=== PATIENT | male | born 1970 | race Two or more races ===

== ENCOUNTER → 2024-02-18 | Day surgery (SDC) | payer MEDICAID ==
[2024-02-12 11:20] LABS: Basophils # (auto) 0 10 ^3/uL (0-0.2); Basophils % (auto) 0.5 % (0.0-2.0); Eosinophils # (auto) 0.1 10 ^3/uL (0-0.8); Eosinophils % (auto) 1.6 % (0.0-7.0); Hematocrit 47.6 % (41.0-53.0); Hemoglobin 16.6 g/dL (13.5-17.5); Lymphocytes # (auto) 3.4 10 ^3/uL (0.4-5.4); Lymphocytes % (auto) 42.6 % (10.0-50.0); Mean Corpuscular Hgb Conc. 34.9 g/dL (32.0-36.0); Mean Corpuscular Volume 97.5 fL (80.0-100.0); Monocytes # (auto) 0.5 10 ^3/uL (0-1.3); Monocytes % (auto) 6.6 % (0.0-12.0); Neutrophils # (auto) 3.9 10 ^3/uL (1.6-8.6); Neutrophils % (auto) 48.7 % (37.0-80.0); Platelet Count (auto) 193 10^3/uL (140-450); Red Blood Cells 4.89 10^6/uL (4.5-5.90); Red Cell Distribution Width 13.7 % (11.8-14.3)
[2024-02-12 11:40] LABS: INR 1.01 (0.9-1.15); Partial Thromboplastin Time 29.1 SEC (24.5-34.5); Prothrombin Time 10.7 sec (9.3-11.8)
[2024-02-12 11:53] LABS: Alanine Aminotransferase 20 U/L (7-40); Albumin 4.7 g/dL (3.2-4.8); Alkaline Phosphatase 90 U/L (46-116); Anion Gap 6 (5-15); Aspartate Aminotransferase 17 U/L (13-40); Blood Urea Nitrogen 7 mg/dL (9-23); Calcium 10.1 mg/dL (8.7-10.4); Carbon Dioxide 28 mmol/L (20-31); Chloride 106 mmol/L (98-107); Glucose 114 mg/dL (74-106); Potassium 4.5 mmol/L (3.5-5.1); Sodium 140 mmol/L (136-145)
[2024-02-12 11:55] LABS: Bilirubin, Total 0.7 mg/dL (0.2-1.0); Total Protein 7.3 g/dL (5.7-8.2)
[~2024-02-18] VITALS: Ht 170.2 cm; Wt 81.6 kg
[~2024-02-18] MED LIST: ASPI-543 PO; ATOR10TA52 PO; CHOL20007 PO; METF-370 PO; SODIUM CHLORIDE LOCK 10 ML ONE
[2024-02-18 11:11] VITALS: O2SAT 99
[2024-02-18] MEDS: diphenhdrAMINE HCL 50 MG/1 ML VL ONE (11:25)
[2024-02-18] MEDS: fentaNYL CITRATE 100 MCG/2 ML VL ONE (11:25)
[2024-02-18] MEDS: MIDAZOLAM HCL 5 MG/ML-1ML VIAL ONE (11:25)
[2024-02-18 11:48] VITALS: TEMP 97.4; O2SAT 100
[2024-02-18 12:35] VITALS: BP 116/58; PULSE 67; RESP 14; O2SAT 99
== END | disposition home or self-care (01) ==
LOC: EDUNIT# 10:13 → GI 10:13
PROVIDERS: ATTEND Internal Medicine Gastroenterology
DX: Z12.11 Encounter for screening for malignant neoplasm of colon (principal); D12.7 Benign neoplasm of rectosigmoid junction; D12.4 Benign neoplasm of descending colon; K64.8 Other hemorrhoids; I10 Essential (primary) hypertension; E11.9 Type 2 diabetes mellitus without complications; F17.210 Nicotine dependence, cigarettes, uncomplicated; Z86.0100 Personal history of colon polyps, unspecified
CPT/HCPCS: 36415; 45380; 80053; 82962; 85025; 85610; 85730; 88305; J1200; J2250; J3010; J7030; 99152

== ENCOUNTER → 2024-05-14 | Outpatient (CLI) | payer MEDICAID ==
[~2024-05-14] MED LIST changes: -SODIUM CHLORIDE LOCK 10 ML ONE
[2024-05-14 06:41] LABS: Urine Bacteria None Seen /hpf (None Seen)
[2024-05-14 06:50] LABS: Urine Blood Negative /uL (Negative); Urine Clarity Clear (Clear); Urine Color Yellow (Yellow); Urine Mucus FEW (None Seen); Urine Protein, UAD Negative (Negative); Urine Specific Gravity 1.019 (1.001-1.035); Urine Squamous Epithelial Cell None Seen /hpf (<5); Urine Urobilinogen 2 mg/dL (Negative); Urine WBC 2 /HPF (0-3)
[2024-05-14 06:55] LABS: Basophils # (auto) 0 10 ^3/uL (0-0.2); Basophils % (auto) 0.5 % (0.0-2.0); Eosinophils # (auto) 0.3 10 ^3/uL (0-0.8); Eosinophils % (auto) 3.6 % (0.0-7.0); Hematocrit 46.9 % (41.0-53.0); Hemoglobin 16.2 g/dL (13.5-17.5); Lymphocytes # (auto) 3.6 10 ^3/uL (0.4-5.4); Lymphocytes % (auto) 48.7 % (10.0-50.0); Mean Corpuscular Hemoglobin 33.4 pg (28.0-32.0); Mean Corpuscular Hgb Conc. 34.6 g/dL (32.0-36.0); Mean Corpuscular Volume 96.7 fL (80.0-100.0); Monocytes # (auto) 0.6 10 ^3/uL (0-1.3); Monocytes % (auto) 7.7 % (0.0-12.0); Neutrophils % (auto) 39.5 % (37.0-80.0); Platelet Count (auto) 210 10^3/uL (140-450); Red Blood Cells 4.85 10^6/uL (4.5-5.90); Red Cell Distribution Width 13.6 % (11.8-14.3); White Blood Cell 7.5 10^3/uL (4.4-10.8)
[2024-05-14 07:20] LABS: Alanine Aminotransferase 14 U/L (7-40); Albumin 4.7 g/dL (3.2-4.8); Anion Gap 6 (5-15); BUN/Creatinine Ratio 8.7 (10.0-20.0); Blood Urea Nitrogen 10 mg/dL (9-23); Calcium 9.8 mg/dL (8.7-10.4); Carbon Dioxide 30 mmol/L (20-31); Chloride 106 mmol/L (98-107); Cholesterol 135 mg/dL (< 200); LDL Cholesterol 88 mg/dL (< 100); Potassium 4.2 mmol/L (3.5-5.1); Prostate Specific Antigen 0.91 ng/mL (0.0-4.0); Sodium 142 mmol/L (136-145); Triglycerides 133 mg/dL (< 150)
[2024-05-14 07:21] LABS: Bilirubin, Total 0.5 mg/dL (0.2-1.0); Total Protein 6.9 g/dL (5.7-8.2)
[2024-05-14 07:29] LABS: Alkaline Phosphatase 120 U/L (46-116); Aspartate Aminotransferase 9 U/L (13-40); Glucose 147 mg/dL (74-106); HDL Cholesterol 37 mg/dL (40-59)
== END | disposition home or self-care (01) ==
LOC: LAB 06:19
PROVIDERS: ATTEND Internal Medicine
DX: E78.5 Hyperlipidemia, unspecified (principal); E11.22 Type 2 diabetes mellitus with diabetic chronic kidney disease
CPT/HCPCS: 36415; 80053; 80061; 81001; 82043; 82607; 83036; 84153; 84443; 85025

== ENCOUNTER 2024-09-03 16:13 | Inpatient (IN) | payer MEDICAID ==
[~2024-09-03] VITALS: Ht 33 cm; Wt 90.5 kg
[2024-09-03 16:28] VITALS: BP 142/86; PULSE 104; RESP 20; TEMP 98.6; O2SAT 96
[2024-09-03] MEDS ORDERED: ERGO1CAP12 PO (16:43)
[2024-09-03] MEDS ORDERED: LISI20TA56 PO (16:43)
[2024-09-03] MEDS ORDERED: CYAN100042 PO (16:43)
[2024-09-03] MEDS ORDERED: HYDROcodone-ACET 5/325MG TAB PO PRN (16:45)
[2024-09-03] MEDS ORDERED: ACETAMINOPHEN 325 MG TAB PO PRN (16:45)
[2024-09-03] MEDS ORDERED: DEXTROSE (50%) 50ML SYRG IV PRN (16:45)
[2024-09-03] MEDS ORDERED: MORPHINE SULFATE INJ 2 MG/ml SYRG IV PRN (16:45)
[2024-09-03] MEDS ORDERED: ONDANSETRON HCL 4 MG/2 ML VIAL IV PRN (16:45)
[2024-09-03] MEDS: CLINDAMYCIN 600MG IV 50 ML IV SCH (16:45)
--- NOTE | 2024-09-03 16:53 | DVHINCON2 ---
Date Seen: September 03, 2024 Reason for Consultation Right foot wound History of Present Illness Patient is a 54-year-old male who presents to the floor for a worsening right foot ulceration. Patient was previously seen in the ortho clinic 2 days ago. Patient was trying to shave his own callus when he got a wound. Patient started to experience some cellulitis with abscess and purulent drainage. Patient was experiencing significant malodor from the wound. Patient was started on Keflex. Patient denies any recent nausea, vomiting, fevers, chills. Patient denies any other pedal complaints. Past Medical History See H&P Past Surgical History See H&P Allergies: Coded Allergies: NO KNOWN ALLERGIES (Unverified , 10/20/21) Home Meds Reported Medications Cyanocobalamin (Vitamin B-12) 1,000 Mcg Tab, 1 TAB PO DAILY 09/03/24 Ergocalciferol (Vitamin D) 50,000 Unit Cap, 1 CAP PO QWEEKLY 09/03/24 Lisinopril (Lisinopril) 20 Mg Tab, 1 TAB PO BID 09/03/24 Cholecalciferol (VITAMIN D3) 2,000 Unit Tab, 1 TAB PO DAILY, #30 TAB 5 Refills 06/02/21 Aspirin (Aspir-Low) 81 Mg Tab, 81 MG PO DAILY for 30 Days, MG 06/02/21 Atorvastatin Calcium (ATORVASTATIN CALCIUM) 10 Mg Tab, 1 TAB PO DAILY, #30 TAB 5 Refills 06/02/21 Metformin Hydrochloride (Metformin Hcl) 500 Mg Tab, 500 MG PO IBID for 30 Days, MG 06/02/21 Current Medications Current Medications Medications (Trade) Dose Ordered Sig/Sebastien Route PRN Reason Start Time Stop Time Status Last Admin Sodium Chloride 1,000 ml @ 60 mls/hr [id number] IV 09/03/24 16:45 UNV Acetaminophen/ Hydrocodone Bitart ([place] 5/325MG Tab) 1 tab Q4HP PRN PO MODERATE PAIN (4-6 PAIN SCALE) 09/03/24 16:45 UNV Ondansetron HCl (Zofran) 4 mg Q4HP PRN IV NAUSEA / VOMITING 09/03/24 16:45 UNV Acetaminophen (Tylenol Tablet) 650 mg Q6HP PRN PO PAIN SCALE 1-3 OR TEMP>100.4 09/03/24 16:45 UNV Morphine Sulfate 2 mg Q4HPRN PRN IV SEVERE PAIN (7-10 PAIN SCALE) 09/03/24 16:45 UNV Aspirin (Ecotrin Enteric Coated Tablet) 81 mg DAILY PO 09/04/24 10:00 UNV Patient Own Medication 1 tab DAILY PO 09/04/24 10:00 UNV Patient Own Medication 1 tab DAILY PO 09/04/24 10:00 UNV Clindamycin Phosphate 50 ml @ 50 mls/hr Q8HR IV 09/03/24 16:45 UNV Diagnostic Test (Pha) (Accu-Chek Comfort Curve T) 1 strip ACHS 09/03/24 17:00 UNV Insulin Human Regular (InsuLIN R) ACHS SC 09/03/24 17:00 UNV Dextrose 50 ml UD PRN IV Blood Sugar LESS THAN 60 09/03/24 16:45 UNV Physical Exam Dermatological: Skin is dry with mild erythema and some maceration around the wound site No gross deformities noted Mild non-pitting edema present bilaterally Right sub 1st wound with necrosis and malodor and purulent drainage Vascular: Dorsalis pedis and posterior tibial pulses are 1+ bilaterally Capillary refill is under 2 seconds Skin temperature is warm bilaterally Neurologic: Protective sensation is absent on the plantar forefoot bilaterally Monofilament testing reveals decreased sensation in multiple plantar sites Musculoskeletal: Range of motion at the ankle and MTP joints is within normal limits. Strength is 5/5 in all tested muscle groups. Gait is antalgic due to offloading of the affected limb. 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 - reviewed advanced imaging - discussed plan is to perform an incision and drainage - patient has been NPO since this morning - take him to the OR today - we will get cultures in the OR - can weightbear as tolerated in postoperative shoe All questions were answered and concerns addressed to the patient's satisfaction. The patient was given the phone number to the clinic and was told how to make contact with the clinic should any concerns or questions arise. Patient understands that if any questions or concerns arise prior to the next appointment, we should be contacted immediately. FOLLOW-UP: Continue to follow while inpatient Plan discussed with: Patient Date of Service: September 03, 2024 Billing Provider: SHANIKA PETTY DPM Common Visit Codes: CONSULT ONLY Consultation Codes: [id number] CONSULT <80MIN SHANIKA PETTY DPM September 03, 2024 16:53
[2024-09-03] MEDS: ceFAZolin 2 GM/D5W50ml 50 ML IV ONE (16:55)
[2024-09-03] MEDS: ACCU-CHEK COMFORT CURVE STRIP VI SCH (17:00)
[2024-09-03] MEDS: InsuLIN REG 1unit/0.01ml Soln (100units/ml) SC SCH (17:00)
--- NOTE | 2024-09-03 17:05 | DVHHP2 ---
History of Present Illness Reason for Visit: Right foot abscess History of Present Illness Chandan Wu is a 54-year-old male with past medical history of diabetes, diabetic neuropathy, hyperlipidemia, and hypertension who presents to the facility with left foot pain and abscess at the podiatry office. Patient reports that he has had this left wound open for 3 days. He also reports that he does not take any medications even though he has been prescribed them. He states that he went to the urgent care and then was informed that he needed to go to the fashion design professor's office. Jennifer at the bedside. Patient denies chest pain, shortness of breath, fever, chills, lightheadedness, weakness, dizziness, abdominal pain, nausea, vomiting, diarrhea, recent trauma or injury, recent ingestion of spoiled food, recent sick contacts, or recent travels. Cardiovascular: HTN, hyperipidemia Endocrine: Diabetes Past Medical History Diabetic neuropathy Family History: DM, Other (Dad with diabetes and mom with dementia and Alzheimer's) Smoke: No ALCOHOL: none Drugs: None Lives: with Family Domestic Violence: Neg Review of Systems Musculoskeletal: foot pain (Left foot pain and open wound) Skin: Other Allergies: Coded Allergies: NO KNOWN ALLERGIES (Unverified , 10/20/21) Medications Current Medications Medications Dose Ordered Sig/Sebastien Route Start Time Stop Time Status Last Admin Dose Admin Sodium Chloride 1,000 ml @ 60 mls/hr [id number] IV 09/03/24 16:45 UNV Acetaminophen/ Hydrocodone Bitart 1 tab Q4HP PRN PO 09/03/24 16:45 UNV Ondansetron HCl 4 mg Q4HP PRN IV 09/03/24 16:45 UNV Acetaminophen 650 mg Q6HP PRN PO 09/03/24 16:45 UNV Morphine Sulfate 2 mg Q4HPRN PRN IV 09/03/24 16:45 UNV Aspirin 81 mg DAILY PO 09/04/24 10:00 UNV Patient Own Medication 1 tab DAILY PO 09/04/24 10:00 UNV Patient Own Medication 1 tab DAILY PO 09/04/24 10:00 UNV Clindamycin Phosphate 50 ml @ 50 mls/hr Q8HR IV 09/03/24 16:45 UNV Exam General Appearance: Alert, Oriented X3, Cooperative, No acute distress HEENT: Atraumatic, PERRLA, EOMI, Mucous membr. moist/pink Respiratory: Clear to auscultation, Normal air movement Cardiovascular: Normal S1, Normal S2 Abdominal: Normal bowel sounds, Soft Extremities: No cyanosis Neuro: Normal gait, Normal speech, Strength at 5/5 X4 ext, Normal tone, Sensation intact Psych/Mental Status: Mental status NL, Mood NL Assessment/Plan Assessment/Plan Assessment Left foot pain and abscess likely cellulitis Rule out osteomyelitis Medication noncompliance History of diabetes History of diabetic neuropathy History of hypertension History of hyperlipidemia Plan Med surge admit Possible I&D IV antibiotics-clindamycin Antiemetics Pain management IV fluids NPO for now Hemoglobin A1c ISS and Accu-Cheks Home medications reconciled DVT prophylaxis-SCDs PUD prophylaxis-not indicated no history of GERD or GI bleed Discussed plan of care with patient, patient's spouse and nurse Encouraged medication compliance Podiatry following Plan discussed with: Patient My Orders Orders - FAZAL THOMPSON SYSTEMS ANALYST Procedure Category Date Status Time Admit ADMIT 09/03/24 Transmitted 16:41 Allergies ALFONSO 09/03/24 In Process 16:41 Code Status CODE 09/03/24 Transmitted 16:41 Sodium Chloride 0.9% PHA 09/03/24 Logged 16:45 Hydrocodone-Acet PHA 09/03/24 Logged 5/325mg Tab ([place] 16:45 Ondansetron Hcl PHA 09/03/24 Logged (Zofran) 16:45 Complete Blood Count LAB 09/04/24 Verified 04:00 Comprehensive LAB 09/04/24 Verified Metabolic Panel 04:00 Npo (Nothing By DIET 09/03/24 Transmitted Mouth) Diet Dinner Acetaminophen Tablet PHA 09/03/24 Logged (Tylenol Tablet) 16:45 Morphine Sulfate PHA 09/03/24 Logged Injection 16:45 Aspirin Enteric PHA 09/04/24 Logged Coated Tablet 10:00 (Nf) Atorvastatin PHA 09/04/24 Logged Calcium 10:00 (Nf) Cholecalciferol PHA 09/04/24 Logged (Vitamin D3) 10:00 Complete Blood Count LAB 09/03/24 Logged 16:43 Comprehensive LAB 09/03/24 Logged Metabolic Panel 16:43 Clindamycin 600mg Iv PHA 09/03/24 Logged (Cleocin Iv) 16:45 Glucose Blood PHA 09/03/24 Transmitted (Accu-Chek Comfort 17:00 Mild Sliding Scale PHA 09/03/24 Transmitted 17:00 Dextrose 50% Syringe PHA 09/03/24 Transmitted 16:45 Hemoglobin A1c LAB 09/03/24 Transmitted 16:44 Date of Service: September 03, 2024 Billing Provider: FAZAL THOMPSON Common Visit Codes: [id number] INP/OBS CARE (HIGH) FAZAL THOMPSON September 03, 2024 17:05
[2024-09-03 17:27] VITALS: BP 142/86; PULSE 104; RESP 20; TEMP 98.6; O2SAT 96
[2024-09-03 17:43] LABS: Basophils # (auto) 0.1 10 ^3/uL (0-0.2); Basophils % (auto) 0.5 % (0.0-2.0); Eosinophils # (auto) 0.2 10 ^3/uL (0-0.8); Eosinophils % (auto) 1.7 % (0.0-7.0); Hematocrit 43.3 % (41.0-53.0); Hemoglobin 14.9 g/dL (13.5-17.5); Lymphocytes # (auto) 2.7 10 ^3/uL (0.4-5.4); Lymphocytes % (auto) 24.3 % (10.0-50.0); Mean Corpuscular Hemoglobin 32.3 pg (28.0-32.0); Mean Corpuscular Hgb Conc. 34.4 g/dL (32.0-36.0); Mean Corpuscular Volume 93.8 fL (80.0-100.0); Monocytes # (auto) 0.9 10 ^3/uL (0-1.3); Monocytes % (auto) 7.7 % (0.0-12.0); Neutrophils # (auto) 7.4 10 ^3/uL (1.6-8.6); Neutrophils % (auto) 65.8 % (37.0-80.0); Platelet Count (auto) 270 10^3/uL (140-450); Red Blood Cells 4.62 10^6/uL (4.5-5.90); Red Cell Distribution Width 13.7 % (11.8-14.3); White Blood Cell 11.3 10^3/uL (4.4-10.8)
[2024-09-03] MEDS: LIDOCAINE HCL (LOCAL ANESTH.) 0.5 % 50ML MDV IJ ONE (17:45)
[2024-09-03 18:01] LABS: Alanine Aminotransferase 23 U/L (7-40); Albumin 4.5 g/dL (3.2-4.8); Alkaline Phosphatase 101 U/L (46-116); Anion Gap 9 (5-15); Aspartate Aminotransferase 14 U/L (13-40); BUN/Creatinine Ratio 8.3 (10.0-20.0); Calcium 9.8 mg/dL (8.7-10.4); Carbon Dioxide 25 mmol/L (20-31); Chloride 102 mmol/L (98-107); Potassium 3.9 mmol/L (3.5-5.1); Total Protein 7.2 g/dL (5.7-8.2)
[2024-09-03 18:02] LABS: Bilirubin, Total 0.8 mg/dL (0.2-1.0)
[2024-09-03 18:09] LABS: Blood Urea Nitrogen 7 mg/dL (9-23); Glucose 131 mg/dL (74-106); Sodium 136 mmol/L (136-145)
--- NOTE | 2024-09-03 18:13 | DVHOP2 ---
Operative Report - 2 Report Details Date: 09/03/24 Preop Diagnosis: 1. Left foot osteomyelitis 2. Left foot abscess 3. Left foot gas gangrene 4. Left foot cellulitis Postop Diagnosis: Same as preop Surgeon: Shanika Petty MD Anesthesiologist: None Anesthesia: Local Consent: The patient was informed of the risks and benefits of the procedure. These include but are not limited to complications of anesthesia, postoperative infection, incomplete relief of symptoms, recurrence of symptoms, damage to blood vessels, nerves and tendons, deep venous thrombosis, pulmonary embolism and possible need for repeat surgery in the future. Complications: None Estimated Blood Loss: Minimal Findings: Consistent with diagnosis Indications for Surgery: Worsening left foot ulcer Name of Procedure Performed 1. Left foot I&D to bone (86073) 2. Left foot bone biopsy () Procedure Details Procedure Details: PRE-PROCEDURE INFORMATION: In the pre-op holding area, the extremity to be operated on was clearly marked and the patient verified correct laterality of the marking. The patient was transferred to the OR table and placed in a supine position. A timeout was performed in which identification of the correct patient, procedure, location, and materials was done. The left foot and leg were prepped and draped in normal sterile fashion. DESCRIPTION OF PROCEDURE: Attention was directed to the left where area of fluctuance was noted. An incision was made over this area and was deepened through blunt dissection. The incision was deepened to the level of abscess and bone. Care was taken to the dissection to avoid any neurovascular and tendinous structures. The incision was deepened to the bone, and the abscess appeared to be purulent fluid consistent with pus. The cortices of the bone was then removed with rongeur an all necrotic tissue. After the abscess was drained, the area was irrigated with 3 L normal saline using cysto tubing. Deep cultures were then obtained from the wound. The area was then inspected and any areas of tracking, especially along the tendons were also drained. A bone biopsy was then taken of the left 1st metatarsal which was deepened to the muscle belly and tendons. The bone was then sent to pathology to determine the extent of osteomyelitis. The wound was packed with Betadine-soaked gauze and we will need to be closed at a later date. POSTOPERATIVE INFORMATION: The patient tolerated the above noted procedure and anesthesia well and was transferred to the PACU with vital signs stable, and vascular status intact with capillary refill intact to all digits. Deep cultures were taken and bone biopsy was taken. The patient will return to the floor and continue IV antibiotics. Patient will return to the OR on Saturday for closure. Specimen: 1st metatarsal Condition Good Disposition Still a Patient SHANIKA PETTY DPMalka September 03, 2024 18:13
[2024-09-03] MEDS: SODIUM CHLORIDE 0.9% 1,000 ML IV SCH (19:02)
[2024-09-03 20:00] VITALS: RESP 14
[2024-09-03 21:00] VITALS: BP 138/79; PULSE 84; RESP 18; TEMP 97.9; O2SAT 100
[2024-09-03] MEDS: ATORVASTATIN 20 MG TAB PO SCH (22:47)
[2024-09-04] VITALS (7 sets, daily range): BP systolic 113–140; BP diastolic 67–84; PULSE 65–84; RESP 17–20; TEMP 97.8–98.4; O2SAT 96–99
[2024-09-04 06:13] LABS: Basophils # (auto) 0 10 ^3/uL (0-0.2); Basophils % (auto) 0.4 % (0.0-2.0); Eosinophils # (auto) 0.3 10 ^3/uL (0-0.8); Eosinophils % (auto) 2.9 % (0.0-7.0); Hematocrit 40.1 % (41.0-53.0); Hemoglobin 14.1 g/dL (13.5-17.5); Lymphocytes # (auto) 2.4 10 ^3/uL (0.4-5.4); Lymphocytes % (auto) 27.1 % (10.0-50.0); Mean Corpuscular Hgb Conc. 35.2 g/dL (32.0-36.0); Mean Corpuscular Volume 93.8 fL (80.0-100.0); Monocytes # (auto) 0.7 10 ^3/uL (0-1.3); Monocytes % (auto) 8.2 % (0.0-12.0); Neutrophils # (auto) 5.3 10 ^3/uL (1.6-8.6); Neutrophils % (auto) 61.4 % (37.0-80.0); Platelet Count (auto) 256 10^3/uL (140-450); Red Blood Cells 4.28 10^6/uL (4.5-5.90); Red Cell Distribution Width 13.4 % (11.8-14.3); White Blood Cell 8.7 10^3/uL (4.4-10.8)
[2024-09-04 06:28] LABS: Alanine Aminotransferase 18 U/L (7-40); Alkaline Phosphatase 86 U/L (46-116); Anion Gap 9 (5-15); Aspartate Aminotransferase 14 U/L (13-40); BUN/Creatinine Ratio 8.6 (10.0-20.0); Carbon Dioxide 23 mmol/L (20-31); Chloride 104 mmol/L (98-107); Potassium 3.7 mmol/L (3.5-5.1); Total Protein 6.2 g/dL (5.7-8.2)
[2024-09-04 06:29] LABS: Bilirubin, Total 0.7 mg/dL (0.2-1.0)
[2024-09-04 06:30] LABS: Blood Urea Nitrogen 6 mg/dL (9-23); Calcium 8.6 mg/dL (8.7-10.4); Glucose 122 mg/dL (74-106); Sodium 136 mmol/L (136-145)
[2024-09-04] MEDS: ASPirin-EC 81 mg tab PO SCH (10:08)
[2024-09-04] MEDS: CHOLECALCIFEROL (VITD3) 1,000UNIT=25mCg TAB PO SCH (10:09)
--- NOTE | 2024-09-04 12:12 | DVHPN2 ---
Subjective Patient is a 54-year-old male who presents to the floor for a worsening left foot ulceration. Patient was previously seen in the ortho clinic 2 days ago. Patient was trying to shave his own callus when he got a wound. Patient started to experience some cellulitis with abscess and purulent drainage. Patient was experiencing significant malodor from the wound. Patient was started on Keflex. Patient denies any recent nausea, vomiting, fevers, chills. Patient denies any other pedal complaints. Changes from previous H/P or p: No Changes Musculoskeletal: foot pain (Left foot pain and open wound) Skin: Other Objective Vitals Vital Signs Date Time Temp Pulse Resp B/P (MAP) Pulse Ox O2 Delivery O2 Flow Rate FiO2 09/04/24 08:44 98.1 73 17 115/69 (84) 99 98.1 09/04/24 08:25 Room Air* 0 21 Intake/Output Intake and Output 09/04/24 07:00 Intake Total 1300 ml Output Total 1800 ml Balance -500 ml Intake Oral 1300 ml Output Urine Total 1800 ml # Voids 3 Exam Skin is dry with mild erythema and some maceration around the wound site No gross deformities noted Mild non-pitting edema present bilaterally Right sub 1st wound with necrosis and malodor and purulent drainage Vascular: Dorsalis pedis and posterior tibial pulses are 1+ bilaterally Capillary refill is under 2 seconds Skin temperature is warm bilaterally Neurologic: Protective sensation is absent on the plantar forefoot bilaterally Monofilament testing reveals decreased sensation in multiple plantar sites Musculoskeletal: Range of motion at the ankle and MTP joints is within normal limits. Strength is 5/5 in all tested muscle groups. Gait is antalgic due to offloading of the affected limb. Medications Current Medications Medications Dose Ordered Sig/Sebastien Route Start Time Stop Time Status Last Admin Dose Admin Sodium Chloride 1,000 ml @ 60 mls/hr [id number] IV 09/03/24 16:45 09/04/24 10:11 60 MLS/HR Acetaminophen/ Hydrocodone Bitart 1 tab Q4HP PRN PO 09/03/24 16:45 Ondansetron HCl 4 mg Q4HP PRN IV 09/03/24 16:45 Acetaminophen 650 mg Q6HP PRN PO 09/03/24 16:45 Morphine Sulfate 2 mg Q4HPRN PRN IV 09/03/24 16:45 Aspirin 81 mg DAILY PO 09/04/24 10:00 09/04/24 10:08 81 MG Atorvastatin Calcium 10 mg HS PO 09/03/24 22:00 09/03/24 22:47 10 MG Cholecalciferol 2,000 unit DAILY PO 09/04/24 10:00 09/04/24 10:09 2,000 UNIT Clindamycin Phosphate 50 ml @ 50 mls/hr Q8HR IV 09/03/24 16:45 09/04/24 05:58 50 MLS/HR Diagnostic Test (Pha) 1 strip ACHS 09/03/24 17:00 09/04/24 06:00 1 STRIP Insulin Human Regular ACHS SC 09/03/24 17:00 09/04/24 05:59 2 UNITS Dextrose 50 ml UD PRN IV 09/03/24 16:45 Laboratory Results Laboratory Tests 09/04/24 05:07 Chemistry Test 09/03/24 17:16 09/04/24 05:07 Albumin 4.5 g/dL (3.2-4.8) 4.0 g/dL (3.2-4.8) Calcium Level 9.8 mg/dL (8.7-10.4) 8.6 mg/dL (8.7-10.4) L Total Protein 7.2 g/dL (5.7-8.2) 6.2 g/dL (5.7-8.2) LFT Test 09/03/24 17:16 09/04/24 05:07 Alanine Aminotransferase (ALT) 23 U/L (7-40) 18 U/L (7-40) Alkaline Phosphatase 101 U/L (46-116) 86 U/L (46-116) Aspartate Amino Transferase (AST) 14 U/L (13-40) 14 U/L (13-40) Total Bilirubin 0.8 mg/dL (0.2-1.0) 0.7 mg/dL (0.2-1.0) HgA1c, TSH Test 09/03/24 16:17 Hemoglobin A1c 6.5 % A1C (<5.7) H Microbiology Microbiology Date/Time Source Procedure Growth Status 09/03/24 18:04 Foot Left Gram Stain Pending Resulted 09/03/24 18:04 Foot Left Anaerobic Culture - Preliminary Resulted 09/03/24 18:04 Foot Left Aerobic Culture - Preliminary Resulted Assessment/Plan Assessment/Plan ASSESSMENT: Patient is a 54 year old seen on the floor 1 day s/p from a left foot I&D PLAN: - The patients chart was reviewed, clinical findings were discussed with the patient, the etiologies of the conditions were discussed in detail, and a treatment plan was agreed to at this time, with both oral and written instructions provided. - reviewed advanced imaging - discussed plan is to perform an incision and drainage and closure on Saturday - patient will be NPO night - take him to the OR Saturday - patient will need a PICC line and 6 weeks IV antibiotics - can weightbear as tolerated in postoperative shoe - coordinated care for patient All questions were answered and concerns addressed to the patient's satisfaction. The patient was given the phone number to the clinic and was told how to make contact with the clinic should any concerns or questions arise. Patient understands that if any questions or concerns arise prior to the next appointment, we should be contacted immediately. 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
--- NOTE | 2024-09-04 17:08 | DVHPN2 ---
Subjective in bed resting Changes from previous H/P or p: No Changes Musculoskeletal: foot pain (Left foot pain and open wound) Skin: Other Objective Vitals Vital Signs Date Time Temp Pulse Resp B/P (MAP) Pulse Ox O2 Delivery O2 Flow Rate FiO2 09/04/24 13:00 98.1 84 20 113/84 (94) 97 98.1 09/04/24 08:25 Room Air* 0 21 Intake/Output Intake and Output 09/04/24 07:00 Intake Total 1350 ml Output Total 1800 ml Balance -450 ml Intake Oral 1300 ml IV Total 50 ml Output Urine Total 1800 ml # Voids 3 General Appearance: Alert, Oriented X3 Lungs: Clear to auscultation Cardiovascular: Regular rate, Normal S1, Normal S2 Abdomen: Normal bowel sounds Medications Current Medications Medications Dose Ordered Sig/[place] Route Start Time Stop Time Status Last Admin Dose Admin Sodium Chloride 1,000 ml @ 60 mls/hr [id number] IV 09/03/24 16:45 09/04/24 10:11 60 MLS/HR Acetaminophen/ Hydrocodone Bitart 1 tab Q4HP PRN PO 09/03/24 16:45 Ondansetron HCl 4 mg Q4HP PRN IV 09/03/24 16:45 Acetaminophen 650 mg Q6HP PRN PO 09/03/24 16:45 Morphine Sulfate 2 mg Q4HPRN PRN IV 09/03/24 16:45 Aspirin 81 mg DAILY PO 09/04/24 10:00 09/04/24 10:08 81 MG Atorvastatin Calcium 10 mg HS PO 09/03/24 22:00 09/03/24 22:47 10 MG Cholecalciferol 2,000 unit DAILY PO 09/04/24 10:00 09/04/24 10:09 2,000 UNIT Clindamycin Phosphate 50 ml @ 50 mls/hr Q8HR IV 09/03/24 16:45 09/04/24 14:05 50 MLS/HR Diagnostic Test (Pha) 1 strip ACHS 09/03/24 17:00 09/04/24 11:30 1 STRIP Insulin Human Regular ACHS SC 09/03/24 17:00 09/04/24 12:30 3 UNITS Dextrose 50 ml UD PRN IV 09/03/24 16:45 Laboratory Results Laboratory Tests 09/04/24 05:07 Chemistry Test 09/03/24 17:16 09/04/24 05:07 Albumin 4.5 g/dL (3.2-4.8) 4.0 g/dL (3.2-4.8) Calcium Level 9.8 mg/dL (8.7-10.4) 8.6 mg/dL (8.7-10.4) L Total Protein 7.2 g/dL (5.7-8.2) 6.2 g/dL (5.7-8.2) LFT Test 09/03/24 17:16 09/04/24 05:07 Alanine Aminotransferase (ALT) 23 U/L (7-40) 18 U/L (7-40) Alkaline Phosphatase 101 U/L (46-116) 86 U/L (46-116) Aspartate Amino Transferase (AST) 14 U/L (13-40) 14 U/L (13-40) Total Bilirubin 0.8 mg/dL (0.2-1.0) 0.7 mg/dL (0.2-1.0) Microbiology Microbiology Date/Time Source Procedure Growth Status 09/03/24 18:04 Foot Left Gram Stain Pending Resulted 09/03/24 18:04 Foot Left Anaerobic Culture - Preliminary Resulted 09/03/24 18:04 Foot Left Aerobic Culture - Preliminary Resulted Assessment/Plan Assessment/Plan Left foot pain and abscess likely cellulitis Rule out osteomyelitis Medication noncompliance History of diabetes History of diabetic neuropathy History of hypertension History of hyperlipidemia s/p from a left foot I&D Continue IV abx Podiatry will take back to OR to close wound PICC line will consult ID today Plan discussed with: Patient My Orders Orders - EFRAÍN ABEBE MD Procedure Category Date Status Time Consistent DIET 09/04/24 Transmitted Carb([facility])Diabetes Lunch Date of Service: September 04, 2024 Billing Provider: EFRAÍN ABEBE MD Common Visit Codes: [id number] INP/OBS CARE([facility]) EFRAÍN ABEBE MD September 04, 2024 17:08
[2024-09-05] VITALS (8 sets, daily range): BP systolic 127–147; BP diastolic 73–79; PULSE 71–89; RESP 18–20; TEMP 97.9–98.4; O2SAT 94–100
--- NOTE | 2024-09-05 15:44 | DVHPN2 ---
Subjective in bed resting Changes from previous H/P or p: No Changes Musculoskeletal: foot pain (Left foot pain and open wound) Skin: Other Objective Vitals Vital Signs Date Time Temp Pulse Resp B/P (MAP) Pulse Ox O2 Delivery O2 Flow Rate FiO2 09/05/24 13:00 97.9 85 18 147/74 (98) 100 97.9 09/05/24 08:00 Room Air* 0 21 Intake/Output Intake and Output 09/05/24 07:00 Intake Total 4550 ml Output Total 3 ml Balance 4547 ml Intake Oral 3500 ml IV Total 1050 ml Output Urine Total 3 ml # Voids 2 # Bowel Movements 2 General Appearance: Alert, Oriented X3 Lungs: Clear to auscultation Cardiovascular: Regular rate, Normal S1, Normal S2 Abdomen: Normal bowel sounds Medications Current Medications Medications Dose Ordered Sig/[place] Route Start Time Stop Time Status Last Admin Dose Admin Sodium Chloride 1,000 ml @ 60 mls/hr [id number] IV 09/03/24 16:45 09/04/24 10:11 60 MLS/HR Acetaminophen/ Hydrocodone Bitart 1 tab Q4HP PRN PO 09/03/24 16:45 Ondansetron HCl 4 mg Q4HP PRN IV 09/03/24 16:45 Acetaminophen 650 mg Q6HP PRN PO 09/03/24 16:45 Morphine Sulfate 2 mg Q4HPRN PRN IV 09/03/24 16:45 Aspirin 81 mg DAILY PO 09/04/24 10:00 09/05/24 10:08 81 MG Atorvastatin Calcium 10 mg HS PO 09/03/24 22:00 09/04/24 22:15 10 MG Cholecalciferol 2,000 unit DAILY PO 09/04/24 10:00 09/05/24 10:08 2,000 UNIT Clindamycin Phosphate 50 ml @ 50 mls/hr Q8HR IV 09/03/24 16:45 09/05/24 14:07 50 MLS/HR Diagnostic Test (Pha) 1 strip ACHS 09/03/24 17:00 09/05/24 11:40 1 STRIP Insulin Human Regular ACHS SC 09/03/24 17:00 09/05/24 11:40 2 UNITS Dextrose 50 ml UD PRN IV 09/03/24 16:45 Laboratory Results Laboratory Tests 09/04/24 05:07 Microbiology Microbiology Date/Time Source Procedure Growth Status 09/03/24 18:04 Foot Left Gram Stain Pending Resulted 09/03/24 18:04 Foot Left Anaerobic Culture - Preliminary Resulted 09/03/24 18:04 Aerobic Culture - Preliminary Citrobacter koseri Resulted Assessment/Plan Assessment/Plan Left foot pain and abscess likely cellulitis Rule out osteomyelitis Medication noncompliance History of diabetes History of diabetic neuropathy History of hypertension History of hyperlipidemia s/p from a left foot I&D Continue IV abx Podiatry will take back to OR to close wound PICC line will consult ID today Plan discussed with: Patient My Orders Orders - EFRAÍN ABEBE MD Procedure Category Date Status Time * Infectious Abisai- CONS 09/04/24 Transmitted Yasmine Farris 17:08 Date of Service: September 05, 2024 Billing Provider: EFRAÍN ABEBE MD Common Visit Codes: [id number] INP/OBS CARE(HIGH) EFRAÍN ABEBE MD September 05, 2024 15:44
[2024-09-06] VITALS (8 sets, daily range): BP systolic 111–136; BP diastolic 61–78; PULSE 63–77; RESP 18–20; TEMP 97.8–98.4; O2SAT 97–100
--- NOTE | 2024-09-06 13:35 | DVHPN2 ---
Subjective in bed resting Changes from previous H/P or p: No Changes Musculoskeletal: foot pain (Left foot pain and open wound) Skin: Other Objective Vitals Vital Signs Date Time Temp Pulse Resp B/P (MAP) Pulse Ox O2 Delivery O2 Flow Rate FiO2 09/06/24 12:37 98.2 67 20 136/78 (97) 98 98.2 09/06/24 08:00 Room Air* 0 21 Intake/Output Intake and Output 09/06/24 06:59 Intake Total 4920 ml Balance 4920 ml Intake Oral 4400 ml IV Total 520 ml # Voids 8 # Bowel Movements 2 General Appearance: Alert, Oriented X3 Lungs: Clear to auscultation Cardiovascular: Regular rate, Normal S1, Normal S2 Abdomen: Normal bowel sounds Medications Current Medications Medications Dose Ordered Sig/Sebastien Route Start Time Stop Time Status Last Admin Dose Admin Sodium Chloride 1,000 ml @ 60 mls/hr [id number] IV 09/03/24 16:45 09/05/24 18:25 60 MLS/HR Acetaminophen/ Hydrocodone Bitart 1 tab Q4HP PRN PO 09/03/24 16:45 Ondansetron HCl 4 mg Q4HP PRN IV 09/03/24 16:45 Acetaminophen 650 mg Q6HP PRN PO 09/03/24 16:45 Morphine Sulfate 2 mg Q4HPRN PRN IV 09/03/24 16:45 Aspirin 81 mg DAILY PO 09/04/24 10:00 09/06/24 12:18 81 MG Atorvastatin Calcium 10 mg HS PO 09/03/24 22:00 09/05/24 21:17 10 MG Cholecalciferol 2,000 unit DAILY PO 09/04/24 10:00 09/06/24 12:18 2,000 UNIT Clindamycin Phosphate 50 ml @ 50 mls/hr Q8HR IV 09/03/24 16:45 09/06/24 06:07 50 MLS/HR Diagnostic Test (Pha) 1 strip ACHS 09/03/24 17:00 09/06/24 11:30 1 STRIP Insulin Human Regular ACHS SC 09/03/24 17:00 09/06/24 12:26 2 UNITS Dextrose 50 ml UD PRN IV 09/03/24 16:45 Laboratory Results Laboratory Tests 09/04/24 05:07 Microbiology Microbiology Date/Time Source Procedure Growth Status 09/03/24 18:04 Foot Left Gram Stain - Final Resulted 09/03/24 18:04 Foot Left Anaerobic Culture - Preliminary Resulted 09/03/24 18:04 Aerobic Culture - Preliminary Citrobacter koseri Resulted Assessment/Plan Assessment/Plan Left foot pain and abscess likely cellulitis Rule out osteomyelitis Medication noncompliance History of diabetes History of diabetic neuropathy History of hypertension History of hyperlipidemia s/p from a left foot I&D Continue IV abx Podiatry will take back to OR to close wound PICC line will consult ID today Plan discussed with: Patient Date of Service: September 06, 2024 Billing Provider: EFRAÍN ABEBE MD Common Visit Codes: [id number] INP/OBS CARE(HIGH) EFRAÍN ABEBE MD September 06, 2024 13:35
[2024-09-07] VITALS (8 sets, daily range): BP systolic 116–140; BP diastolic 48–73; PULSE 65–80; RESP 16–19; TEMP 97.7–98.6; O2SAT 96–100
--- NOTE | 2024-09-07 12:20 | DVHPN2 ---
Subjective culture with strep viridans, GBS and citrobacter, cover with ceftriaxone. bcx to r/o endocarditis Changes from previous H/P or p: No Changes Musculoskeletal: foot pain (Left foot pain and open wound) Skin: Other Objective Vitals Vital Signs Date Time Temp Pulse Resp B/P (MAP) Pulse Ox O2 Delivery O2 Flow Rate FiO2 09/07/24 09:00 97.7 73 19 126/73 (90) 98 97.7 09/07/24 08:00 Room Air* 0 21 Intake/Output Intake and Output 09/07/24 07:00 Intake Total 2630 ml Balance 2630 ml Intake Oral 2580 ml IV Total 50 ml # Voids 8 # Bowel Movements 1 General Appearance: Alert, Oriented X3 Lungs: Clear to auscultation Cardiovascular: Regular rate, Normal S1, Normal S2 Abdomen: Normal bowel sounds Medications Current Medications Medications Dose Ordered Sig/Sebastien Route Start Time Stop Time Status Last Admin Dose Admin Sodium Chloride 1,000 ml @ 60 mls/hr [id number] IV 09/03/24 16:45 09/05/24 18:25 60 MLS/HR Acetaminophen/ Hydrocodone Bitart 1 tab Q4HP PRN PO 09/03/24 16:45 Ondansetron HCl 4 mg Q4HP PRN IV 09/03/24 16:45 Acetaminophen 650 mg Q6HP PRN PO 09/03/24 16:45 Morphine Sulfate 2 mg Q4HPRN PRN IV 09/03/24 16:45 Aspirin 81 mg DAILY PO 09/04/24 10:00 09/06/24 12:18 81 MG Atorvastatin Calcium 10 mg HS PO 09/03/24 22:00 09/06/24 21:30 10 MG Cholecalciferol 2,000 unit DAILY PO 09/04/24 10:00 09/06/24 12:18 2,000 UNIT Clindamycin Phosphate 50 ml @ 50 mls/hr Q8HR IV 09/03/24 16:45 09/07/24 05:05 50 MLS/HR Diagnostic Test (Pha) 1 strip ACHS 09/03/24 17:00 09/07/24 06:43 1 STRIP Insulin Human Regular ACHS SC 09/03/24 17:00 09/06/24 21:30 4 UNITS Dextrose 50 ml UD PRN IV 09/03/24 16:45 Laboratory Results Laboratory Tests 09/04/24 05:07 Microbiology Microbiology Date/Time Source Procedure Growth Status 09/03/24 18:04 Foot Left Gram Stain - Final Resulted 09/03/24 18:04 Foot Left Anaerobic Culture - Preliminary Resulted 09/03/24 18:04 Aerobic Culture - Final Citrobacter koseri Resulted Assessment/Plan Assessment/Plan Left foot pain and abscess likely cellulitis (GBS, strep viridans, citrobacter) left foot OM Medication noncompliance History of diabetes History of diabetic neuropathy History of hypertension History of hyperlipidemia cover with ceft bcx echo if bcx positive picc ss home iv abx once culture finalized Plan discussed with: Patient Date of Service: September 07, 2024 Billing Provider: BAKARI CALDERÓN MD Common Visit Codes: [id number] INP/OBS CARE(HIGH) BAKARI CALDERÓN MD September 07, 2024 12:20
[2024-09-07 13:44] LABS: INR 1.01 (0.9-1.15); Partial Thromboplastin Time 29.3 SEC (24.5-34.5); Prothrombin Time 10.7 sec (9.3-11.8)
--- NOTE | 2024-09-07 13:57 | DVHPN2 ---
Subjective Patient is a 54-year-old male who presents to the floor for a worsening left foot ulceration. Patient was previously seen in the ortho clinic 2 days ago. Patient was trying to shave his own callus when he got a wound. Patient started to experience some cellulitis with abscess and purulent drainage. Patient was experiencing significant malodor from the wound. Patient was started on Keflex. Patient denies any recent nausea, vomiting, fevers, chills. Patient denies any other pedal complaints. Changes from previous H/P or p: No Changes Musculoskeletal: foot pain (Left foot pain and open wound) Skin: Other Objective Vitals Vital Signs Date Time Temp Pulse Resp B/P (MAP) Pulse Ox O2 Delivery O2 Flow Rate FiO2 09/07/24 09:00 97.7 73 19 126/73 (90) 98 97.7 09/07/24 08:00 Room Air* 0 21 Intake/Output Intake and Output 09/07/24 07:00 Intake Total 2630 ml Balance 2630 ml Intake Oral 2580 ml IV Total 50 ml # Voids 8 # Bowel Movements 1 Exam Skin is dry with mild erythema and some maceration around the wound site No gross deformities noted Mild non-pitting edema present bilaterally Right sub 1st wound with necrosis and malodor and purulent drainage Vascular: Dorsalis pedis and posterior tibial pulses are 1+ bilaterally Capillary refill is under 2 seconds Skin temperature is warm bilaterally Neurologic: Protective sensation is absent on the plantar forefoot bilaterally Monofilament testing reveals decreased sensation in multiple plantar sites Musculoskeletal: Range of motion at the ankle and MTP joints is within normal limits. Strength is 5/5 in all tested muscle groups. Gait is antalgic due to offloading of the affected limb. General Appearance: Alert, Oriented X3 Lungs: Clear to auscultation Cardiovascular: Regular rate, Normal S1, Normal S2 Abdomen: Normal bowel sounds Medications Current Medications Medications Dose Ordered Sig/Sebastien Route Start Time Stop Time Status Last Admin Dose Admin Sodium Chloride 1,000 ml @ 60 mls/hr [id number] IV 09/03/24 16:45 09/05/24 18:25 60 MLS/HR Acetaminophen/ Hydrocodone Bitart 1 tab Q4HP PRN PO 09/03/24 16:45 Acetaminophen 650 mg Q6HP PRN PO 09/03/24 16:45 Aspirin 81 mg DAILY PO 09/04/24 10:00 09/06/24 12:18 81 MG Atorvastatin Calcium 10 mg HS PO 09/03/24 22:00 09/06/24 21:30 10 MG Cholecalciferol 2,000 unit DAILY PO 09/04/24 10:00 09/06/24 12:18 2,000 UNIT Diagnostic Test (Pha) 1 strip ACHS 09/03/24 17:00 09/07/24 11:30 1 STRIP Insulin Human Regular ACHS SC 09/03/24 17:00 09/06/24 21:30 4 UNITS Dextrose 50 ml UD PRN IV 09/03/24 16:45 Ceftriaxone Sodium 50 ml @ 100 mls/hr DAILY@09 IV 09/08/24 09:00 UNV Laboratory Results Laboratory Tests 09/04/24 05:07 Coagulation Test 09/07/24 13:18 Prothrombin Time 10.7 sec (9.3-11.8) Prothrombin Time INR 1.01 (0.9-1.15) Activated Partial Thromboplast Time 29.3 SEC (24.5-34.5) Microbiology Microbiology Date/Time Source Procedure Growth Status 09/03/24 18:04 Foot Left Gram Stain - Final Resulted 09/03/24 18:04 Foot Left Anaerobic Culture - Preliminary Resulted 09/03/24 18:04 Aerobic Culture - Final Citrobacter koseri Resulted Assessment/Plan Assessment/Plan ASSESSMENT: Patient is a 54 year old seen on the floor 3 day s/p from a left foot I&D PLAN: - The patients chart was reviewed, clinical findings were discussed with the patient, the etiologies of the conditions were discussed in detail, and a treatment plan was agreed to at this time, with both oral and written instructions provided. - reviewed advanced imaging - discussed plan is to perform an incision and drainage and closure on Today - patient has been NPO since midnight - take him to the OR today - patient will need a PICC line and 6 weeks IV antibiotics - can weightbear as tolerated in postoperative shoe - coordinated care for patient All questions were answered and concerns addressed to the patient's satisfaction. The patient was given the phone number to the clinic and was told how to make contact with the clinic should any concerns or questions arise. Patient understands that if any questions or concerns arise prior to the next appointment, we should be contacted immediately. 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
[2024-09-07] MEDS ORDERED: GLYCOPYRROLATE 0.2 MG/ML 1ML VIAL ONE (17:15)
[2024-09-07] MEDS ORDERED: KETAMINE 50mg/ML 1ml syringe ONE (17:15)
[2024-09-07] MEDS ORDERED: KETOROLAC TROMETH 30 MG/ML 1ML VIAL ONE (17:15)
[2024-09-07] MEDS ORDERED: LIDOCAINE 2% (LOCAL ANESTH.) PF 5ml SDV ONE (17:15)
[2024-09-07] MEDS ORDERED: ONDANSETRON HCL 4 MG/2 ML VIAL ONE (17:15)
[2024-09-07] MEDS ORDERED: PROPOFOL 10 MG/ML 20 ML IV ONE (17:15)
--- NOTE | 2024-09-07 17:54 | DVHOP2 ---
Operative Report - 2 Report Details Date: 09/07/24 Preop Diagnosis: 1. Left foot osteomyelitis 2. Left foot abscess 3. Left foot gas gangrene 4. Left foot cellulitis Postop Diagnosis: Same as preop Surgeon: Shanika Petty MD Anesthesiologist: None Anesthesia: Local Consent: The patient was informed of the risks and benefits of the procedure. These include but are not limited to complications of anesthesia, postoperative infection, incomplete relief of symptoms, recurrence of symptoms, damage to blood vessels, nerves and tendons, deep venous thrombosis, pulmonary embolism and possible need for repeat surgery in the future. Complications: None Estimated Blood Loss: Minimal Fluids: See anesthesia Findings: Consistent with the diagnosis Indications for Surgery: Worsening left foot wound Name of Procedure Performed 1. Left foot I&D to bone (31545) 2. Left foot rotational flap (51417) 3. Left foot delayed closure (80320) Procedure Details Procedure Details: PRE-PROCEDURE INFORMATION: In the pre-op holding area, the extremity to be operated on was clearly marked and the patient verified correct laterality of the marking. The patient was transferred to the OR table and placed in a supine position. A timeout was performed in which identification of the correct patient, procedure, location, and materials was done. The left foot and leg were prepped and draped in normal sterile fashion. DESCRIPTION OF PROCEDURE: Attention was directed to the left where area of fluctuance was noted. An incision was made over this area and was deepened through blunt dissection. The incision was deepened to the level of abscess and bone. Care was taken to the dissection to avoid any neurovascular and tendinous structures. The incision was deepened to the bone, and the abscess appeared to be purulent fluid consistent with pus. The cortices of the bone was then removed with rongeur an all necrotic tissue. After the abscess was drained, the area was irrigated with 3 L normal saline using cysto tubing. Deep cultures were then obtained from the wound. The area was then inspected and any areas of tracking, especially along the tendons were also drained. Using a 15 blade, the skin was rotated to allow for closure of the skin over the metatarsal. A delayed closure was then performed using 2-0 nylon after was deemed appropriate with no longer concern for infection. POSTOPERATIVE INFORMATION: The patient tolerated the above noted procedure and anesthesia well and was transferred to the PACU with vital signs stable, and vascular status intact with capillary refill intact to all digits. Patient will return to the floor and continue IV anitbiotics. Patient will need 6 weeks of IV antibiotics. Patient can follow up with me 1 week after discharge. Leave dressings intact until first appointment. Condition Good Disposition Still a Patient SHANIKA PETTY DPM September 07, 2024 17:54
[2024-09-07] MEDS ORDERED: DexAMETHasone SOD PHOS 10MG/1ML VIAL INJ ONE (18:37)
[2024-09-07] MEDS: BUPIVACAINE 0.5% P/F INJ 10 ML VIAL ONE (18:45)
[2024-09-07] MEDS ORDERED: HYDROmorphone HCL 2 MG/ML VL/or syr IV PRN (19:15)
[2024-09-07] MEDS ORDERED: NALOXONE HCL 0.4 MG/ML VIAL IV PRN (19:15)
[2024-09-07] MEDS ORDERED: hydrALAZINE HCL 20 MG/ML VL IV PRN (19:15)
[2024-09-07] MEDS ORDERED: fentaNYL CITRATE 100 MCG/2 ML VL IV PRN (19:15)
[2024-09-07] MEDS ORDERED: ePHEDrine SULFATE 50 MG/ML AMP IV PRN (19:15)
[2024-09-07] MEDS ORDERED: ONDANSETRON HCL 4 MG/2 ML VIAL IV PRN (19:15)
[2024-09-07] MEDS ORDERED: FLUMAZENIL 0.1 MG/ML INJ 10ML MDV IV PRN (19:15)
[2024-09-08] VITALS (8 sets, daily range): BP systolic 111–138; BP diastolic 50–78; PULSE 70–90; RESP 15–19; TEMP 97.3–98.1; O2SAT 98–99
[2024-09-08] MEDS: cefTRIAXone 1GM/50ML D5W 50 ML IV SCH (08:11)
--- NOTE | 2024-09-08 09:24 | DVHPN2 ---
Subjective pending bcx, picc. s/p closure. tighter BS control Changes from previous H/P or p: No Changes Musculoskeletal: foot pain (Left foot pain and open wound) Skin: Other Objective Vitals Vital Signs Date Time Temp Pulse Resp B/P (MAP) Pulse Ox O2 Delivery O2 Flow Rate FiO2 09/08/24 09:00 98.1 90 15 130/69 (89) 99 98.1 09/07/24 20:00 Room Air* 0 21 Intake/Output Intake and Output 09/08/24 07:00 Intake Total 1000 ml Balance 1000 ml Intake Oral 1000 ml # Voids 2 # Bowel Movements 2 General Appearance: Alert, Oriented X3 Lungs: Clear to auscultation Cardiovascular: Regular rate, Normal S1, Normal S2 Abdomen: Normal bowel sounds Medications Current Medications Medications Dose Ordered Sig/Sebastien Route Start Time Stop Time Status Last Admin Dose Admin Sodium Chloride 1,000 ml @ 60 mls/hr [id number] IV 09/03/24 16:45 09/07/24 21:02 60 MLS/HR Acetaminophen/ Hydrocodone Bitart 1 tab Q4HP PRN PO 09/03/24 16:45 Acetaminophen 650 mg Q6HP PRN PO 09/03/24 16:45 Aspirin 81 mg DAILY PO 09/04/24 10:00 09/08/24 08:10 81 MG Atorvastatin Calcium 10 mg HS PO 09/03/24 22:00 09/07/24 21:21 10 MG Cholecalciferol 2,000 unit DAILY PO 09/04/24 10:00 09/08/24 08:11 2,000 UNIT Diagnostic Test (Pha) 1 strip ACHS 09/03/24 17:00 09/08/24 06:32 1 STRIP Insulin Human Regular ACHS SC 09/03/24 17:00 09/08/24 06:34 6 UNITS Dextrose 50 ml UD PRN IV 09/03/24 16:45 Ceftriaxone Sodium 50 ml @ 100 mls/hr DAILY@09 IV 09/08/24 09:00 09/08/24 08:11 100 MLS/HR Laboratory Results Laboratory Tests 09/04/24 05:07 Coagulation Test 09/07/24 13:18 Prothrombin Time 10.7 sec (9.3-11.8) Prothrombin Time INR 1.01 (0.9-1.15) Activated Partial Thromboplast Time 29.3 SEC (24.5-34.5) Microbiology Microbiology Date/Time Source Procedure Growth Status 09/03/24 18:04 Foot Left Gram Stain - Final Resulted 09/03/24 18:04 Foot Left Anaerobic Culture - Preliminary Resulted 09/03/24 18:04 Aerobic Culture - Final Citrobacter koseri Resulted Assessment/Plan Assessment/Plan Left foot pain and abscess likely cellulitis (GBS, strep viridans, citrobacter) left foot OM Medication noncompliance History of diabetes History of diabetic neuropathy History of hypertension History of hyperlipidemia cover with ceft bcx echo if bcx positive picc ss home iv abx once culture finalized s/p closure lantus + ISS lispro Plan discussed with: Patient My Orders Orders - BAKARI CALDERÓN MD Procedure Category Date Status Time Ceftriaxone 1gm/50ml PHA 09/08/24 In Process D5w (Rocephin) 09:00 * Picc Line Consult CONS 09/07/24 Transmitted 12:20 Blood Culture PARAS 09/08/24 Logged 09:20 Basic Metabolic Panel LAB 09/09/24 Verified 04:00 Complete Blood Count LAB 09/09/24 Verified 04:00 Date of Service: September 08, 2024 Billing Provider: BAKARI CALDERÓN MD Common Visit Codes: [id number] INP/OBS CARE(HIGH) BAKARI CALDERÓN MD September 08, 2024 09:24
[2024-09-08] MEDS: INSULIN LISPRO (HUMAN) 100 UNITS/ML ML SC SCH (11:44)
[2024-09-08] MEDS: LIDOCAINE 1% (LOCAL ANESTH.) PF 5ml SDV ID ONE (15:45)
[2024-09-08] MEDS: SODIUM CHLOR 0.9% PF (SALINE LOCK) 10ML VIAL/SYR IV SCH (21:44)
[2024-09-08] MEDS: INSULIN LANTUS (GLARGINE) 1 /0.01ml (100units/ml) SC SCH (21:47)
[2024-09-09] VITALS (9 sets, daily range): BP systolic 123–148; BP diastolic 64–83; PULSE 76–96; RESP 17–20; TEMP 97.8–99.1; O2SAT 95–99
[2024-09-09 05:37] LABS: Basophils # (auto) 0 10 ^3/uL (0-0.2); Basophils % (auto) 0.3 % (0.0-2.0); Eosinophils # (auto) 0.2 10 ^3/uL (0-0.8); Eosinophils % (auto) 1.3 % (0.0-7.0); Hematocrit 40.3 % (41.0-53.0); Hemoglobin 13.7 g/dL (13.5-17.5); Lymphocytes # (auto) 3.7 10 ^3/uL (0.4-5.4); Lymphocytes % (auto) 30.7 % (10.0-50.0); Mean Corpuscular Hgb Conc. 34.1 g/dL (32.0-36.0); Mean Corpuscular Volume 93.8 fL (80.0-100.0); Monocytes % (auto) 8.4 % (0.0-12.0); Neutrophils # (auto) 7.2 10 ^3/uL (1.6-8.6); Neutrophils % (auto) 59.3 % (37.0-80.0); Platelet Count (auto) 378 10^3/uL (140-450); Red Blood Cells 4.29 10^6/uL (4.5-5.90); Red Cell Distribution Width 13.5 % (11.8-14.3); White Blood Cell 12.2 10^3/uL (4.4-10.8)
[2024-09-09 05:40] LABS: Chloride 105 mmol/L (98-107); Potassium 4.2 mmol/L (3.5-5.1); Sodium 139 mmol/L (136-145)
[2024-09-09 05:41] LABS: Anion Gap 7 (5-15); Calcium 8.7 mg/dL (8.7-10.4); Carbon Dioxide 27 mmol/L (20-31)
[2024-09-09 05:46] LABS: BUN/Creatinine Ratio 12.6 (10.0-20.0); Blood Urea Nitrogen 11 mg/dL (9-23)
[2024-09-09 05:54] LABS: Glucose 193 mg/dL (74-106)
[2024-09-09] MEDS: VANCOMYCIN HCL 1000 MG VL ONE (08:09)
[2024-09-10] VITALS (8 sets, daily range): BP systolic 104–141; BP diastolic 52–77; PULSE 75–96; RESP 16–20; TEMP 97.6–99.1; O2SAT 98–99
[2024-09-11] VITALS (8 sets, daily range): BP systolic 105–131; BP diastolic 54–69; PULSE 70–83; RESP 18–20; TEMP 98–98.5; O2SAT 95–98
--- NOTE | 2024-09-11 15:05 | DVHPN2 ---
Reviewed: Care Plan, H&P, Labs, Medications, Previous Orders, Radiology Changes from previous H/P or p: No Changes General: Per HPI Musculoskeletal: foot pain (Left foot pain and open wound) Skin: Other Objective Vitals Vital Signs Date Time Temp Pulse Resp B/P (MAP) Pulse Ox O2 Delivery O2 Flow Rate FiO2 09/11/24 13:00 98.2 73 20 116/62 (80) 97 98.2 09/11/24 08:00 Room Air* 0 21 Intake/Output Intake and Output 09/11/24 07:00 Intake Total 6130 ml Balance 6130 ml Intake Oral 4300 ml IV Total 1830 ml # Voids 11 # Bowel Movements 4 General Appearance: Alert, Oriented X3 Lungs: Clear to auscultation Cardiovascular: Regular rate, Normal S1, Normal S2 Abdomen: Normal bowel sounds Medications Current Medications Medications Dose Ordered Sig/Sebastien Route Start Time Stop Time Status Last Admin Dose Admin Sodium Chloride 1,000 ml @ 60 mls/hr [id number] IV 09/03/24 16:45 09/11/24 07:39 60 MLS/HR Acetaminophen/ Hydrocodone Bitart 1 tab Q4HP PRN PO 09/03/24 16:45 Acetaminophen 650 mg Q6HP PRN PO 09/03/24 16:45 Aspirin 81 mg DAILY PO 09/04/24 10:00 09/11/24 08:36 81 MG Atorvastatin Calcium 10 mg HS PO 09/03/24 22:00 09/10/24 21:47 10 MG Cholecalciferol 2,000 unit DAILY PO 09/04/24 10:00 09/11/24 08:35 2,000 UNIT Diagnostic Test (Pha) 1 strip ACHS 09/03/24 17:00 09/11/24 11:24 1 STRIP Dextrose 50 ml UD PRN IV 09/03/24 16:45 Ceftriaxone Sodium 50 ml @ 100 mls/hr DAILY@09 IV 09/08/24 09:00 09/11/24 08:35 100 MLS/HR Insulin Glargine 5 units HS SC 09/08/24 22:00 09/10/24 21:48 5 UNITS Insulin Human Lispro AC SC 09/08/24 11:30 09/11/24 11:38 1 UNITS Sodium Chloride 10 ml QSHIFT@ IV 09/08/24 22:00 09/11/24 08:36 10 ML Laboratory Results Laboratory Tests 09/09/24 05:02 Microbiology Microbiology Date/Time Source Procedure Growth Status 09/08/24 10:03 Blood Blood Culture - Preliminary NO GROWTH AFTER 72 HOURS OF INCUBATION. Resulted 09/03/24 18:04 Foot Left Gram Stain - Final Complete 09/03/24 18:04 Anaerobic Culture - Final Peptostreptococcus assacharoly Complete 09/03/24 18:04 Aerobic Culture - Final Citrobacter koseri Complete Assessment/Plan Assessment/Plan Left foot pain and abscess likely cellulitis (GBS, strep viridans, citrobacter) left foot OM Medication noncompliance History of diabetes History of diabetic neuropathy History of hypertension History of hyperlipidemia 09/09/2024 pending pic line placement Plan discussed with: Patient Date of Service: September 09, 2024 Billing Provider: FLORIN RUIZ DO Common Visit Codes: [id number] INP/OBS CARE(HIGH) FLORIN RUIZ DO September 11, 2024 15:05
[2024-09-12] VITALS (8 sets, daily range): BP systolic 108–141; BP diastolic 60–79; PULSE 73–91; RESP 17–19; TEMP 97.9–98.6; O2SAT 97–100
--- NOTE | 2024-09-12 06:20 | DVHPN2 ---
Reviewed: Care Plan, H&P, Labs, Medications, Previous Orders, Radiology Changes from previous H/P or p: No Changes General: Per HPI Musculoskeletal: foot pain (Left foot pain and open wound) Skin: Other Objective Vitals Vital Signs Date Time Temp Pulse Resp B/P (MAP) Pulse Ox O2 Delivery O2 Flow Rate FiO2 09/12/24 05:00 98.4 85 19 124/66 (85) 97 98.4 09/11/24 20:00 Room Air* 0 21 Intake/Output Intake and Output 09/12/24 07:00 Intake Total 2730 ml Output Total 675 ml Balance 2055 ml Intake Oral 2080 ml IV Total 650 ml Output Urine Total 675 ml # Voids 4 # Bowel Movements 2 General Appearance: Alert, Oriented X3 Lungs: Clear to auscultation Cardiovascular: Regular rate, Normal S1, Normal S2 Abdomen: Normal bowel sounds Medications Current Medications Medications Dose Ordered Sig/Sebastien Route Start Time Stop Time Status Last Admin Dose Admin Sodium Chloride 1,000 ml @ 60 mls/hr [id number] IV 09/03/24 16:45 09/11/24 07:39 60 MLS/HR Acetaminophen/ Hydrocodone Bitart 1 tab Q4HP PRN PO 09/03/24 16:45 Acetaminophen 650 mg Q6HP PRN PO 09/03/24 16:45 Aspirin 81 mg DAILY PO 09/04/24 10:00 09/11/24 08:36 81 MG Atorvastatin Calcium 10 mg HS PO 09/03/24 22:00 09/11/24 22:14 10 MG Cholecalciferol 2,000 unit DAILY PO 09/04/24 10:00 09/11/24 08:35 2,000 UNIT Diagnostic Test (Pha) 1 strip ACHS 09/03/24 17:00 09/12/24 06:16 1 STRIP Dextrose 50 ml UD PRN IV 09/03/24 16:45 Ceftriaxone Sodium 50 ml @ 100 mls/hr DAILY@09 IV 09/08/24 09:00 09/11/24 08:35 100 MLS/HR Insulin Glargine 5 units HS SC 09/08/24 22:00 09/10/24 21:48 5 UNITS Insulin Human Lispro AC SC 09/08/24 11:30 09/12/24 06:12 1 UNITS Sodium Chloride 10 ml QSHIFT@ IV 09/08/24 22:00 09/11/24 22:15 10 ML Laboratory Results Laboratory Tests 09/09/24 05:02 Microbiology Microbiology Date/Time Source Procedure Growth Status 09/08/24 10:03 Blood Blood Culture - Preliminary NO GROWTH AFTER 72 HOURS OF INCUBATION. Resulted 09/03/24 18:04 Foot Left Gram Stain - Final Complete 09/03/24 18:04 Anaerobic Culture - Final Peptostreptococcus assacharoly Complete 09/03/24 18:04 Aerobic Culture - Final Citrobacter koseri Complete Assessment/Plan Assessment/Plan Left foot pain and abscess likely cellulitis (GBS, strep viridans, citrobacter) left foot OM Medication noncompliance History of diabetes History of diabetic neuropathy History of hypertension History of hyperlipidemia 09/09/2024 pending pic line placement 09/10/2024: pending set up for iv abx picc line in place on right arm discussed with pt Plan discussed with: Patient My Orders Orders - FLORIN RUIZ DO Procedure Category Date Status Time * Fund Accounting Manager CONS 09/11/24 Transmitted Consult 16:48 Date of Service: September 10, 2024 Billing Provider: FLORIN RUIZ DO Common Visit Codes: [id number] INP/OBS CARE(HIGH) FLORIN RUIZ DO September 12, 2024 06:20
--- NOTE | 2024-09-12 06:21 | DVHPN2 ---
Reviewed: Care Plan, H&P, Labs, Medications, Previous Orders, Radiology Changes from previous H/P or p: No Changes General: Per HPI Musculoskeletal: foot pain (Left foot pain and open wound) Skin: Other Objective Vitals Vital Signs Date Time Temp Pulse Resp B/P (MAP) Pulse Ox O2 Delivery O2 Flow Rate FiO2 09/12/24 05:00 98.4 85 19 124/66 (85) 97 98.4 09/11/24 20:00 Room Air* 0 21 Intake/Output Intake and Output 09/12/24 07:00 Intake Total 2730 ml Output Total 675 ml Balance 2055 ml Intake Oral 2080 ml IV Total 650 ml Output Urine Total 675 ml # Voids 4 # Bowel Movements 2 General Appearance: Alert, Oriented X3 Lungs: Clear to auscultation Cardiovascular: Regular rate, Normal S1, Normal S2 Abdomen: Normal bowel sounds Medications Current Medications Medications Dose Ordered Sig/Sebastien Route Start Time Stop Time Status Last Admin Dose Admin Sodium Chloride 1,000 ml @ 60 mls/hr [id number] IV 09/03/24 16:45 09/11/24 07:39 60 MLS/HR Acetaminophen/ Hydrocodone Bitart 1 tab Q4HP PRN PO 09/03/24 16:45 Acetaminophen 650 mg Q6HP PRN PO 09/03/24 16:45 Aspirin 81 mg DAILY PO 09/04/24 10:00 09/11/24 08:36 81 MG Atorvastatin Calcium 10 mg HS PO 09/03/24 22:00 09/11/24 22:14 10 MG Cholecalciferol 2,000 unit DAILY PO 09/04/24 10:00 09/11/24 08:35 2,000 UNIT Diagnostic Test (Pha) 1 strip ACHS 09/03/24 17:00 09/12/24 06:16 1 STRIP Dextrose 50 ml UD PRN IV 09/03/24 16:45 Ceftriaxone Sodium 50 ml @ 100 mls/hr DAILY@09 IV 09/08/24 09:00 09/11/24 08:35 100 MLS/HR Insulin Glargine 5 units HS SC 09/08/24 22:00 09/10/24 21:48 5 UNITS Insulin Human Lispro AC SC 09/08/24 11:30 09/12/24 06:12 1 UNITS Sodium Chloride 10 ml QSHIFT@ IV 09/08/24 22:00 09/11/24 22:15 10 ML Laboratory Results Laboratory Tests 09/09/24 05:02 Microbiology Microbiology Date/Time Source Procedure Growth Status 09/08/24 10:03 Blood Blood Culture - Preliminary NO GROWTH AFTER 72 HOURS OF INCUBATION. Resulted 09/03/24 18:04 Foot Left Gram Stain - Final Complete 09/03/24 18:04 Anaerobic Culture - Final Peptostreptococcus assacharoly Complete 09/03/24 18:04 Aerobic Culture - Final Citrobacter koseri Complete Labs and/or images reviewed: Labs reviewed by me, Image(s) reviewed by me Assessment/Plan Assessment/Plan Left foot pain and abscess likely cellulitis (GBS, strep viridans, citrobacter) left foot OM Medication noncompliance History of diabetes History of diabetic neuropathy History of hypertension History of hyperlipidemia 09/09/2024 pending pic line placement 09/10/2024: pending HH set up for iv abx picc line in place on right arm discussed with pt 09/11/2024: requested social studies department chair to set up HH (abx) once it's set up, pt is can be discharged pt is medically stable Plan discussed with: Patient My Orders Orders - FLORIN RUIZ DO Procedure Category Date Status Time * 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
--- NOTE | 2024-09-12 19:24 | DVHPN2 ---
Subjective Feels okay Reviewed: Care Plan, H&P, Labs, Medications, Previous Orders, Radiology, Other (Consultants) Changes from previous H/P or p: No Changes General: Per HPI Musculoskeletal: foot pain (Left foot pain and open wound) Skin: Other Objective Vitals Vital Signs Date Time Temp Pulse Resp B/P (MAP) Pulse Ox O2 Delivery O2 Flow Rate FiO2 09/12/24 16:30 98.3 79 18 122/76 (91) 97 98.3 09/12/24 08:00 Room Air* 0 21 Intake/Output Intake and Output 09/12/24 07:00 Intake Total 2730 ml Output Total 675 ml Balance 2055 ml Intake Oral 2080 ml IV Total 650 ml Output Urine Total 675 ml # Voids 4 # Bowel Movements 2 General Appearance: Alert, Oriented X3, Cooperative, No acute distress Lungs: Clear to auscultation Cardiovascular: Regular rate Abdomen: Normal bowel sounds Extremities: Other (Left foot surgical dressing) Medications Current Medications Medications Dose Ordered Sig/Sebastien Route Start Time Stop Time Status Last Admin Dose Admin Sodium Chloride 1,000 ml @ 60 mls/hr [id number] IV 09/03/24 16:45 09/11/24 07:39 60 MLS/HR Acetaminophen/ Hydrocodone Bitart 1 tab Q4HP PRN PO 09/03/24 16:45 Acetaminophen 650 mg Q6HP PRN PO 09/03/24 16:45 Aspirin 81 mg DAILY PO 09/04/24 10:00 09/12/24 09:57 81 MG Atorvastatin Calcium 10 mg HS PO 09/03/24 22:00 09/11/24 22:14 10 MG Cholecalciferol 2,000 unit DAILY PO 09/04/24 10:00 09/12/24 10:02 2,000 UNIT Diagnostic Test (Pha) 1 strip ACHS 09/03/24 17:00 09/12/24 17:29 1 STRIP Dextrose 50 ml UD PRN IV 09/03/24 16:45 Ceftriaxone Sodium 50 ml @ 100 mls/hr DAILY@09 IV 09/08/24 09:00 09/12/24 09:58 100 MLS/HR Insulin Glargine 5 units HS SC 09/08/24 22:00 09/10/24 21:48 5 UNITS Insulin Human Lispro AC SC 09/08/24 11:30 09/12/24 06:12 1 UNITS Sodium Chloride 10 ml QSHIFT@10,22 IV 09/08/24 22:00 09/12/24 10:00 10 ML Laboratory Results Laboratory Tests 09/09/24 05:02 Microbiology Microbiology Date/Time Source Procedure Growth Status 09/08/24 10:03 Blood Blood Culture - Preliminary NO GROWTH AFTER 72 HOURS OF INCUBATION. Resulted 09/03/24 18:04 Foot Left Gram Stain - Final Complete 09/03/24 18:04 Anaerobic Culture - Final Peptostreptococcus assacharoly Complete 09/03/24 18:04 Aerobic Culture - Final Citrobacter koseri Complete Assessment/Plan Assessment/Plan Left foot cellulitis/osteomyelitis status post I and D Diabetes Diabetic neuropathy Hypertension Dyslipidemia Plan: Continue current plan of care. Pending discharge with home health for IV antibiotics Plan discussed with: Patient My Orders Orders - ELOY VILLEDA MD Procedure Category Date Status Time Complete Blood Count LAB 09/13/24 Verified 06:00 Comprehensive LAB 09/13/24 Verified Metabolic Panel 06:00 Date of Service: September 12, 2024 Billing Provider: ELOY VILLEDA MD Common Visit Codes: [id number] INP/OBS CARE(HIGH) ELOY VILLEDA MD September 12, 2024 19:24
[2024-09-13] VITALS (7 sets, daily range): BP systolic 107–130; BP diastolic 61–78; PULSE 70–78; RESP 18–19; TEMP 97.4–98.4; O2SAT 96–99
[2024-09-13 08:33] LABS: Basophils # (auto) 0 10 ^3/uL (0-0.2); Basophils % (auto) 0.3 % (0.0-2.0); Eosinophils # (auto) 0.3 10 ^3/uL (0-0.8); Eosinophils % (auto) 2.8 % (0.0-7.0); Hematocrit 43.3 % (41.0-53.0); Hemoglobin 14.9 g/dL (13.5-17.5); Lymphocytes % (auto) 30.7 % (10.0-50.0); Mean Corpuscular Hemoglobin 32.2 pg (28.0-32.0); Mean Corpuscular Hgb Conc. 34.3 g/dL (32.0-36.0); Mean Corpuscular Volume 93.8 fL (80.0-100.0); Monocytes # (auto) 0.7 10 ^3/uL (0-1.3); Monocytes % (auto) 7.4 % (0.0-12.0); Neutrophils # (auto) 5.7 10 ^3/uL (1.6-8.6); Neutrophils % (auto) 58.8 % (37.0-80.0); Nucleated Red Blood Cells % 0.1 %; Platelet Count (auto) 447 10^3/uL (140-450); Red Blood Cells 4.61 10^6/uL (4.5-5.90); Red Cell Distribution Width 13.5 % (11.8-14.3); White Blood Cell 9.8 10^3/uL (4.4-10.8)
[2024-09-13 08:52] LABS: Albumin 4.7 g/dL (3.2-4.8); Alkaline Phosphatase 97 U/L (46-116); Anion Gap 7 (5-15); Aspartate Aminotransferase 25 U/L (13-40); BUN/Creatinine Ratio 16.5 (10.0-20.0); Blood Urea Nitrogen 14 mg/dL (9-23); Calcium 10.3 mg/dL (8.7-10.4); Carbon Dioxide 29 mmol/L (20-31); Potassium 4.8 mmol/L (3.5-5.1); Total Protein 7.5 g/dL (5.7-8.2)
[2024-09-13 08:53] LABS: Alanine Aminotransferase 42 U/L (7-40); Bilirubin, Total 0.4 mg/dL (0.2-1.0); Chloride 98 mmol/L (98-107); Glucose 159 mg/dL (74-106); Sodium 134 mmol/L (136-145)
--- NOTE | 2024-09-13 14:51 | DVHDS2 ---
Discharge Summary Date of Admission September 03, 2024 at 16:13 Date of Discharge: September 13, 2024 Admitting Diagnosis Left foot abscess and pain Labs/Diagnostic Data: Laboratory Results Test 09/13/24 11:38 09/13/24 08:18 09/07/24 13:18 09/03/24 16:17 POC Glucose 130 mg/dl (70-106) White Blood Count 9.8 10^3/uL (4.4-10.8) Red Blood Count 4.61 10^6/uL (4.5-5.90) Hemoglobin 14.9 g/dL (13.5-17.5) Hematocrit 43.3 % (41.0-53.0) Mean Corpuscular Volume 93.8 fL (80.0-100.0) Mean Corpuscular Hemoglobin 32.2 pg (28.0-32.0) Mean Corpuscular Hemoglobin Concent 34.3 g/dL (32.0-36.0) Red Cell Distribution Width 13.5 % (11.8-14.3) Platelet Count 447 10^3/uL (140-450) Mean Platelet Volume 6.8 fL (6.9-10.8) Neutrophils (%) (Auto) 58.8 % (37.0-80.0) Lymphocytes (%) (Auto) 30.7 % (10.0-50.0) Monocytes (%) (Auto) 7.4 % (0.0-12.0) Eosinophils (%) (Auto) 2.8 % (0.0-7.0) Basophils (%) (Auto) 0.3 % (0.0-2.0) Neutrophils # (Auto) 5.7 10 ^3/uL (1.6-8.6) Lymphocytes # (Auto) 3.0 10 ^3/uL (0.4-5.4) Monocytes # (Auto) 0.7 10 ^3/uL (0-1.3) Eosinophils # (Auto) 0.3 10 ^3/uL (0-0.8) Basophils # (Auto) 0 10 ^3/uL (0-0.2) Nucleated Red Blood Cells 0.1 % Sodium Level 134 mmol/L (136-145) Potassium Level 4.8 mmol/L (3.5-5.1) Chloride Level 98 mmol/L (98-107) Carbon Dioxide Level 29 mmol/L (20-31) Anion Gap 7 (5-15) Blood Urea Nitrogen 14 mg/dL (9-23) Creatinine 0.85 mg/dL (0.700-1.30) Glomerular Filtration Rate Calc 104 mL/min (>90) BUN/Creatinine Ratio 16.5 (10.0-20.0) Serum Glucose 159 mg/dL (74-106) Calcium Level 10.3 mg/dL (8.7-10.4) Total Bilirubin 0.4 mg/dL (0.2-1.0) Aspartate Amino Transferase (AST) 25 U/L (13-40) Alanine Aminotransferase (ALT) 42 U/L (7-40) Alkaline Phosphatase 97 U/L (46-116) Total Protein 7.5 g/dL (5.7-8.2) Albumin 4.7 g/dL (3.2-4.8) Prothrombin Time 10.7 sec (9.3-11.8) Prothrombin Time INR 1.01 (0.9-1.15) Activated Partial Thromboplast Time 29.3 SEC (24.5-34.5) Hemoglobin A1c 6.5 % A1C (<5.7) Other Laboratory Tests 09/13/24 08:18 Brief Hx & Hospital Course: 54-year-old gentleman admitted to the hospital because of left foot abscess and cellulitis and osteomyelitis. Patient was seen by fast food supervisor. Patient underwent surgical debridement and I and D. Patient culture grew Citrobacter koseri and beta-hemolytic group B Streptococcus. Patient is being discharged home on IV antibiotics as arranged by the hospitalist earlier. Patient was still having left lower extremity swelling for which ultrasound has been ordered and is pending. Consults/Reason for consult Podiatry/surgical debridement and I and D done Condition at Discharge: Good Final Diagnosis/Problems List Left foot abscess Left foot osteomyelitis Left foot cellulitis Left foot gas gangrene Diabetes Diabetic neuropathy Hypertension Dyslipidemia Discharge Disposition: Home (With home health for IV antibiotics) Discharge Instruct/Medications Diet: Consistent carbohydrate Activity: Light activity Follow Up/Referral: PCP within one week Podiatry within two weeks Medications: IV antibiotics with Rocephin 1 g IV daily for five weeks 35 Discharge Statement: "Patient was advised to return to the ER or call 911 if any headaches, dizziness, shortness of breath, chest pain, abdominal pain, bleeding, fevers, or worsening of medical condition. Patient was counseled about treatment plan, medications, possible side effects, patientverbalized understanding. All questions were answered to the best of my ability. This discharge took greater then 30 minutes in planning, reviewing documentation, counseling the patient, and discussing with other team members." ASSESSMENT ASSESSMENT Assessment Same as preop Date of Service: September 13, 2024 Billing Provider: ELOY VILLEDA MD Common Visit Codes: [id number] DISCH DAY >30min ELOY VILLEDA MD September 13, 2024 14:51
--- NOTE | 2024-09-13 16:36 | DVH ---
US LT Lower DVT HISTORY: left leg swelling COMPARISON: None TECHNIQUE: Duplex Doppler evaluation of the deep venous system of the left lower extremity from the [facility] femoral veins, superficial femoral vein, deep femoral vein, popliteal vein, and calf veins, inc luding color Doppler and spectral/pulsed waveform analysis, was performed. Please note incorrect late rality on the sonographic images, which should state left lower extremity, not right lower extremity. FINDINGS: Left: - Common femoral vein: Compressible - Deep femoral vein: Compressible - Femoral vein: Compressible - Popliteal vein: Compressible - Trifurcation: Waveforms present - Posterior tibial vein: Waveforms present Other: Nothing IMPRESSION: No left lower extremity deep venous thrombosis.
== END 2024-09-13 17:20 | disposition home health service (06) | DRG 317 ==
LOC: OVERFLOW 16:13 → EAST 16:18 → CENTRAL 09-09 16:20
PROVIDERS: ADMIT Internal Medicine; ATTEND Internal Medicine
PROC: 0QBP0ZX Excision of Left Metatarsal, Open Approach, Diagnostic (ICD-10-PCS; 2024-09-03)
PROC: 0Y9N0ZZ Drainage of Left Foot, Open Approach (ICD-10-PCS; principal; 2024-09-03 17:54)
PROC: 0JXR0ZZ Transfer Left Foot Subcutaneous Tissue and Fascia, Open Approach (ICD-10-PCS; 2024-09-07)
PROC: 0Y9N0ZZ Drainage of Left Foot, Open Approach (ICD-10-PCS; 2024-09-07)
PROC: 02HV33Z Insertion of Infusion Device into Superior Vena Cava, Percutaneous Approach (ICD-10-PCS; 2024-09-08)
PROC: B548ZZA Ultrasonography of Superior Vena Cava, Guidance (ICD-10-PCS; 2024-09-08)
DX: E10.69 Type 1 diabetes mellitus with other specified complication (principal); M86.8X7 Other osteomyelitis, ankle and foot; E10.621 Type 1 diabetes mellitus with foot ulcer; A48.0 Gas gangrene; E10.40 Type 1 diabetes mellitus with diabetic neuropathy, unspecified; L03.116 Cellulitis of left lower limb; E10.52 Type 1 diabetes mellitus with diabetic peripheral angiopathy with gangrene; L02.612 Cutaneous abscess of left foot; L97.529 Non-pressure chronic ulcer of other part of left foot with unspecified severity; I10 Essential (primary) hypertension; E78.5 Hyperlipidemia, unspecified; L97.519 Non-pressure chronic ulcer of other part of right foot with unspecified severity; Z82.0 Family history of epilepsy and other diseases of the nervous system; Z83.3 Family history of diabetes mellitus; Z91.148 Patient's other noncompliance with medication regimen for other reason; Z79.82 Long term (current) use of aspirin; Z79.84 Long term (current) use of oral hypoglycemic drugs; Z79.899 Other long term (current) drug therapy; Z79.4 Long term (current) use of insulin
CPT/HCPCS: 36415; 36569; 76937; 80048; 80053; 82962; 83036; 85025; 85610; 85730; 87040; 87070; 87075; 87076; 87077; 87186; 87205; 93971; G0378; J1100; J1815; J1885; J2003; J2405; J2704; J3490

== ENCOUNTER → 2024-12-04 | Outpatient (CLI) | payer MEDICAID ==
[~2024-12-04] MED LIST changes: +CYAN100042 PO; +ERGO1CAP12 PO; +LISI20TA56 PO
== END | disposition home or self-care (01) ==
LOC: LAB 10:36
PROVIDERS: ATTEND Internal Medicine
DX: E11.9 Type 2 diabetes mellitus without complications (principal)
CPT/HCPCS: 36415; 83036

== ENCOUNTER 2024-12-09 14:58 | Outpatient (CLI) | payer MEDICAID ==
[2024-12-09 15:47] LABS: Chloride 100 mmol/L (98-107); Potassium 4.0 mmol/L (3.5-5.1)
[2024-12-09 15:48] LABS: Anion Gap 9 (5-15); Carbon Dioxide 27 mmol/L (20-31)
[2024-12-09 15:49] LABS: Calcium 9.2 mg/dL (8.7-10.4); Sodium 136 mmol/L (136-145)
[2024-12-09 15:54] LABS: BUN/Creatinine Ratio 11.0 (10.0-20.0); Blood Urea Nitrogen 11 mg/dL (9-23)
[2024-12-09 15:55] LABS: Glucose 145 mg/dL (74-106)
== END 2024-12-09 17:00 | disposition home or self-care (01) ==
LOC: LAB 14:58
PROVIDERS: ATTEND Internal Medicine
DX: E11.22 Type 2 diabetes mellitus with diabetic chronic kidney disease (principal); N18.9 Chronic kidney disease, unspecified
CPT/HCPCS: 36415; 80048; 82306; 82607

== ENCOUNTER 2025-01-01 11:50 | Outpatient (CLI) | payer MEDICAID ==
[2025-01-01 12:18] LABS: Chloride 102 mmol/L (98-107); Potassium 5.0 mmol/L (3.5-5.1); Sodium 138 mmol/L (136-145)
[2025-01-01 12:19] LABS: Anion Gap 10 (5-15); Calcium 9.8 mg/dL (8.7-10.4); Carbon Dioxide 26 mmol/L (20-31)
[2025-01-01 12:24] LABS: BUN/Creatinine Ratio 11.3 (10.0-20.0); Blood Urea Nitrogen 11 mg/dL (9-23)
[2025-01-01 12:27] LABS: Glucose 168 mg/dL (74-106)
== END 2025-01-01 17:00 | disposition home or self-care (01) ==
LOC: LAB 11:50
PROVIDERS: ATTEND Internal Medicine
DX: Z01.812 Encounter for preprocedural laboratory examination (principal); L02.612 Cutaneous abscess of left foot; L03.116 Cellulitis of left lower limb; A48.0 Gas gangrene
CPT/HCPCS: 36415; 80048

== ENCOUNTER 2025-02-24 09:28 | Day surgery (SDC) | payer MEDICAID ==
[2025-02-22 13:28] LABS: Hematocrit 46.0 % (41.0-53.0); Hemoglobin 15.4 g/dL (13.5-17.5); Mean Corpuscular Hemoglobin 29.6 pg (28.0-32.0); Mean Corpuscular Volume 88.5 fL (80.0-100.0); Nucleated Red Blood Cells % 0.0 %
[2025-02-22 13:43] LABS: INR 0.97 (0.9-1.15); Partial Thromboplastin Time 29.7 SEC (24.5-34.5); Prothrombin Time 10.3 sec (9.3-11.8)
[2025-02-22 13:52] LABS: Alanine Aminotransferase 31 U/L (7-40); Alkaline Phosphatase 137 U/L (46-116); Anion Gap 9 (5-15); Calcium 9.6 mg/dL (8.7-10.4); Carbon Dioxide 28 mmol/L (20-31); Chloride 101 mmol/L (98-107); Potassium 4.9 mmol/L (3.5-5.1); Sodium 138 mmol/L (136-145)
[2025-02-22 13:54] LABS: Glucose 157 mg/dL (74-106)
[2025-02-22 13:55] LABS: BUN/Creatinine Ratio 9.6 (10.0-20.0); Blood Urea Nitrogen 9 mg/dL (9-23)
[2025-02-22 13:56] LABS: Albumin 4.6 g/dL (3.2-4.8); Total Protein 7.8 g/dL (5.7-8.2)
[2025-02-22 13:57] LABS: Bilirubin, Total 0.6 mg/dL (0.2-1.0)
[2025-02-22 14:04] LABS: Urine Protein, UAD Negative (Negative)
[~2025-02-24] VITALS: Ht 170.2 cm; Wt 93.0 kg
[~2025-02-24 09:28] MED LIST changes: -ASPI-543 PO; -CHOL20007 PO; +EMPA1TAB PO; -ERGO1CAP12 PO; -LISI20TA56 PO
[2025-02-24] MEDS ORDERED: ceFAZolin 2 GM/D5W50ml 50 ML IV ONE (09:56)
[2025-02-24] MEDS ORDERED: MORPHINE SULFATE INJ 2 MG/ml SYRG IV PRN (10:45)
[2025-02-24] MEDS ORDERED: ACCU-CHEK COMFORT CURVE STRIP VI ONE (10:45)
[2025-02-24] MEDS ORDERED: METOCLOPRAMIDE HCL 5MG/ml INJ 2ml VIAL IV PRN (10:45)
[2025-02-24] MEDS ORDERED: HYDROmorphone HCL 2 MG/ML VL/or syr IV PRN ×2 (10:45)
[2025-02-24] MEDS ORDERED: KETOROLAC TROMETH 30 MG/ML 1ML VIAL IV ONE (10:45)
[2025-02-24] MEDS ORDERED: MORPHINE SULFATE 4 MG/ML SYR/VIAL IV PRN (10:45)
[2025-02-24] MEDS ORDERED: KETAMINE 50mg/ML 1ml syringe ONE (10:57)
[2025-02-24] MEDS ORDERED: MIDAZOLAM HCL 2MG/2ML 2ml VIAL (1mg/ml) ONE (10:58)
[2025-02-24] MEDS ORDERED: ONDANSETRON HCL 4 MG/2 ML VIAL ONE (10:58)
[2025-02-24] MEDS ORDERED: SODIUM CHLORIDE LOCK 10 ML ONE (10:58)
[2025-02-24] MEDS ORDERED: LIDOCAINE 1% INJ PF 5ML AMP ONE (10:58)
[2025-02-24] MEDS ORDERED: PROPOFOL 10 MG/ML 20 ML IV ONE (10:58)
[2025-02-24] MEDS ORDERED: MEPERIDINE HCL (25 MG/ML) 1ML VIAL ONE (11:03)
[2025-02-24] MEDS ORDERED: VANCOMYCIN HCL 1000 MG VL ONE (11:03)
[2025-02-24 11:32] VITALS: PULSE 80; RESP 13; TEMP 98.7; O2SAT 95
--- NOTE | 2025-02-24 11:34 | DVHOP2 ---
Operative Report - 2 Report Details Date: 02/24/25 Preop Diagnosis: 1. Left foot osteomyelitis 2. Left foot abscess 3. Left foot cellulitis 4. Left foot soft tissue mass 5. Left foot diabetic foot ulcer Postop Diagnosis: Same as preop Surgeon: Shanika Petty MD Anesthesiologist: See anesthesia Anesthesia: Mac Consent: The patient was informed of the risks and benefits of the procedure. These include but are not limited to complications of anesthesia, postoperative infection, incomplete relief of symptoms, recurrence of symptoms, damage to blood vessels, nerves and tendons, deep venous thrombosis, pulmonary embolism and possible need for repeat surgery in the future. Complications: None Estimated Blood Loss: Minimal Fluids: See anesthesia Findings: Consistent with diagnosis Indications for Surgery: Worsening foot wound Name of Procedure Performed 1. Left foot I&D (53519) 2. Left foot soft tissue mass excision (00643) 3. Left foot delayed closure (72722) Procedure Details Procedure Details: PRE-PROCEDURE INFORMATION: In the pre-op holding area, the extremity to be operated on was clearly marked and the patient verified correct laterality of the marking. The patient was transferred to the OR table and placed in a supine position. A timeout was performed in which identification of the correct patient, procedure, location, and materials was done. The left foot and leg were prepped and draped in normal sterile fashion. DESCRIPTION OF PROCEDURE: Attention was directed to the left where area of fluctuance was noted. An incision was made over this area and was deepened through blunt dissection. The incision was deepened to the level of abscess and bone. Care was taken to the dissection to avoid any neurovascular and tendinous structures. The incision was deepened to the bone, and the abscess appeared to be purulent fluid consistent with pus. The cortices of the bone was then removed with rongeur an all necrotic tissue. After the abscess was drained, the area was irrigated with 3 L normal saline using cysto tubing. The area was then inspected and any areas of tracking, especially along the tendons were also drained. Using a 15 blade, there was an overlying soft tissue mass that was extruding from the wound, it was excised in its entirety and was approximately 3 x 2 cm. A delayed closure was then performed using 2-0 nylon after was deemed appropriate with no longer concern for infection. All surgical wounds were irrigated copiously with saline and closed in layers with the aforementioned suture material. A dry sterile dressing was placed on the surgical extremity. The patient was placed in a postop shoe POSTOPERATIVE INFORMATION: The patient tolerated the above noted procedure and anesthesia well and was transferred to the PACU with vital signs stable, and vascular status intact with capillary refill intact to all digits. Postoperative instructions reviewed in detail with the patient with written instructions provided. Patient will return to clinic in approximately 10-14 days for first postoperative visit. Patient has the number of the clinic and was instructed to call prior to that time should any problems, questions, or concerns arise. Specimen: Left foot soft tissue mass Condition Good Disposition Home Visit Coding Podiatry Date of Service if different f: Feb 24, 2025 Billing Provider: SHANIKA PETTY DPM Podiatry Common Visit Codes: PROCEDURE ONLY SHANIKA PETTY DPM Feb 24, 2025 11:34
[2025-02-24 12:07] VITALS: BP 116/76; PULSE 77; RESP 12; O2SAT 96
[2025-02-24] MEDS: LIDOCAINE 1% HCL (LOCAL ANESTH.) INJ 20ML MDV ONE (12:21)
[2025-02-24] MEDS ORDERED: KETOROLAC TROMETH 30 MG/ML 1ML VIAL ONE (13:11)
== END 2025-02-24 12:17 | disposition home or self-care (01) ==
LOC: SUR 09:28
PROVIDERS: ATTEND Podiatrist
DX: E11.69 Type 2 diabetes mellitus with other specified complication (principal); E11.621 Type 2 diabetes mellitus with foot ulcer; L97.512 Non-pressure chronic ulcer of other part of right foot with fat layer exposed; M86.8X7 Other osteomyelitis, ankle and foot; R22.42 Localized swelling, mass and lump, left lower limb; L03.116 Cellulitis of left lower limb; L02.612 Cutaneous abscess of left foot; E11.42 Type 2 diabetes mellitus with diabetic polyneuropathy; E78.00 Pure hypercholesterolemia, unspecified; E11.40 Type 2 diabetes mellitus with diabetic neuropathy, unspecified; E78.1 Pure hyperglyceridemia; E66.9 Obesity, unspecified; Z68.33 Body mass index [BMI] 33.0-33.9, adult; Z79.84 Long term (current) use of oral hypoglycemic drugs; Z79.899 Other long term (current) drug therapy; Z98.890 Other specified postprocedural states
CPT/HCPCS: 13160; 28005; 28039; 36415; 80053; 81001; 82962; 85025; 85610; 85730; 88307; J0690; J1885; J2003; J2175; J2250; J2405; J2704; J3373